=== PATIENT | female | born 1970 | race Caucasian/White ===

== ENCOUNTER → 2016-08-22 | Outpatient (CLI) | payer OTHER ==
[~2016-08-22] MED LIST: ALLEGRA-D 24 H1 EACH PO; AZASAN100 MG PO; BONIVA2.5 MG PO; LIALDA1.2 GM PO; NORCO 5-325 TA1 EACH PO
== END ==
LOC: ULTRA 09:21
DX: E04.1 Nontoxic single thyroid nodule (principal); R22.1 Localized swelling, mass and lump, neck

== ENCOUNTER → 2016-08-24 | Outpatient (CLI) | payer BC, OTHER ==
--- NOTE | ~2016-08-24 | CNG ---
[facility] [address] CYTO-NONGYN REPORT PROCEDURE Name: GENET LEWIS Room #: REG [facility].#: [id number] Admission: 08/24/16 Date of : 66 Discharge: Report #: [id number] Path Case #: [id number] CYTOPATHOLOGY REPORT COLLECTION DATE: 08/24/2016 RECEIVED DATE: 08/24/2016 SUBMITTING PHYS: RAKEL Buitrago OTHER PHYS: CLINICAL HISTORY: Left thyroid nodule. PROCEDURE: A. Four passes performed by Meera Maloney ADMINISTRATIVE RESIDENT yielding less than one mL of bloody fluid. Twenty air-dried slides, and 30 mL from needle rinsed in CytoLyt were submitted to the lab. SPECIMEN(S) RECEIVED: A.Fine needle aspiration, Left thyroid * * * * * * * * * * * * FINAL DIAGNOSIS: A. Thyroid, Left, Fine needle aspiration: BETHESDA CATEGORY II. SPECIMEN CONSISTS OF BENIGN FOLLICULAR CELLS, WATERY COLLOID, DENSE COLLOID, AND BLOOD. THIS PATTERN IS COMPATIBLE WITH A BENIGN ADENOMATOID NODULE. COMMENT: Nuclear features of papillary thyroid carcinoma are not identified. Please note sample represents minute portion of a larger lesion and may not be financial representative. Correlate clinically and follow-up as indicated. (IUV; 08/25/16) PATHOLOGIST: Peggy Isaacs M.D. REPORT ELECTRONICALLY SIGNED BY: Peggy Isaacs M.D. DATE/TIME: 08/25/2016 10:40 * * * * * * * * * * * * GROSS PATHOLOGY: A. Fine needle aspiration, Left thyroid: The specimen is labeled "Genet Lewis" and consists of twenty air dried slides. Thirty mL of clear colorless fluid in formalin from the needle rinse is also submitted and a cell block only was prepared from this material. (clt 08.24.2016) AIRLINE STEWARDESS(S): TARI Freeman([facility]) INITIAL CPT CODE(S): A; [address], [id number] [address] CYTO-NONGYN REPORT PROCEDURE Name: GEN[facility] LEWIS [id number] Admission: 08/24/16 Date of : 66 Discharge: Report #: [id number] Path Case #: [id number] Professional services performed by [facility] [address], [place] [address] Technical services performed by [facility] at [address] [place] [address]., [address], [place] [address]. [address], [address] [place] [address] PHONE: [phone] DIRECTOR: Edwin Hinojosa M.D. * * * END OF REPORT * * *
== END | disposition home or self-care (01) ==
LOC: ULTRA 08:38
DX: D34 Benign neoplasm of thyroid gland (principal)

== ENCOUNTER → 2016-12-13 | Outpatient (CLI) | payer OTHER | LOC: CAT 07:51 | DX: Z13.6 Encounter for screening for cardiovascular disorders (principal) ==

== ENCOUNTER → 2020-08-03 | Outpatient (CLI) | payer BC, OTHER | LOC: LAB 08:55 | PROVIDERS: ATTEND Family Medicine | DX: U07.1 COVID-19 (principal) ==

== ENCOUNTER → 2021-03-04 | Outpatient (CLI) | payer OTHER | LOC: CAT 11:49 | PROVIDERS: ATTEND Family Medicine | DX: Z13.6 Encounter for screening for cardiovascular disorders (principal); E78.00 Pure hypercholesterolemia, unspecified; I25.10 Atherosclerotic heart disease of native coronary artery without angina pectoris ==